=== PATIENT | female | born 1970 | race Caucasian/White ===

== ENCOUNTER 2017-06-29 07:35 | Inpatient (IN) | payer BC ==
[~2017-06-29 07:35] MED LIST: GLYCOPYRROLATE 0.4 MG INJ; LABETALOL HCL 20MG INJ; LIDOCAINE 2% (SDV) 5 ML INJ; NEOSTIGMINE 3 MG/3 ML SYRINGE
[2017-06-29] MEDS: LACTATED RINGER'S 1,000 ML IV* (09:30)
[2017-06-29] MEDS ORDERED: CEFAZOLIN 2 GM/50 ML (PMX) 50 ML IVPB (09:30)
[2017-06-29] MEDS ORDERED: BISACODYL 10 MG SUPP PR (12:00)
[2017-06-29] MEDS ORDERED: ACETAMINOPHEN 325 MG TAB PO (12:00)
[2017-06-29] MEDS ORDERED: NALOXONE (0.4 MG/ML) INJ IV (12:00)
[2017-06-29] MEDS ORDERED: HYDROCODONE/APAP (10/325) TAB PO (12:00)
[2017-06-29] MEDS ORDERED: CA CHLORIDE 10% 10 ML SYRINGE (12:35)
[2017-06-29] MEDS ORDERED: ROCURONIUM 50 MG INJ (12:46)
[2017-06-29] MEDS ORDERED: DEXAMETHASONE 4 MG/ML 1 ML INJ (12:46)
[2017-06-29] MEDS ORDERED: PROPOFOL 20 ML (12:46)
[2017-06-29] MEDS ORDERED: ONDANSETRON 4 MG INJ (12:47)
[2017-06-29] MEDS ORDERED: morphine 10 MG INJ (12:47)
[2017-06-29] MEDS ORDERED: ALBUTEROL 0.083% (NEB) 2.5 MG/3 ML AMP HHN (13:00)
[2017-06-29] MEDS ORDERED: EPHEDrine SULFATE 50 MG/5 ML SYG IV (13:00)
[2017-06-29] MEDS ORDERED: ONDANSETRON 4 MG INJ IV (13:00)
[2017-06-29] MEDS ORDERED: MIDAZOLAM 1 MG/ML 2 ML INJ IV (13:00)
[2017-06-29] MEDS ORDERED: hydrALAzine 20 MG INJ IV (13:00)
[2017-06-29] MEDS ORDERED: DIPHENHYDRAMINE 50 MG INJ IV (13:00)
[2017-06-29] MEDS ORDERED: FENTAnyl 50 MCG/ML VIAL IV ×2 (13:00)
[2017-06-29] MEDS ORDERED: HYDROmorphONE (0.2 MG/ML) 10ML SYG IV ×2 (13:00→17:20)
[2017-06-29] MEDS ORDERED: LABETALOL HCL 20MG INJ IV (13:00)
[2017-06-29] MEDS ORDERED: OXYCODONE/ACETAMINOPHEN (5/325) TAB PO ×2 (13:00)
[2017-06-29] MEDS: CEFAZOLIN 1 GM INJ (14:52)
[2017-06-29] MEDS: SURGIFOAM POWDER 1 GM KIT ×2 (14:54→16:54)
[2017-06-29] MEDS: GELATIN SIZE 100 SPONGE (14:54)
[2017-06-29] MEDS: HEPARIN 1000 UNITS/ML 10 ML INJ ×2 (14:54→14:55)
[2017-06-29] MEDS: LIDOCAINE 1%/EPI 30 ML INJ (14:57)
[2017-06-29] MEDS: THROMBIN 5000 UNIT VIAL (14:57)
[2017-06-29] MEDS ORDERED: CEFAZOLIN 1 GM/50 ML (PMX) 50 ML IVPB (15:00)
[2017-06-29] MEDS: HYDROmorphONE 0.5 MG/0.5 ML SYG IV (17:19)
[2017-06-29] MEDS: HYDROmorphONE 0.2 MG/ML PCA IV (17:24)
[2017-06-29] MEDS: HYDROmorphONE (0.2 MG/ML) 10ML SYG IV ×5 (17:26→17:57)
[2017-06-29] MEDS: FENTAnyl 50 MCG/ML VIAL IV ×2 (17:37→17:57)
[2017-06-29] MEDS: KETOROLAC 30 MG INJ IV (17:39)
[2017-06-29] MEDS: MEPERIDINE 25 MG INJ IV (17:39)
[2017-06-29] MEDS: DIPHENHYDRAMINE 50 MG INJ IV (17:49)
[2017-06-29 18:02] LABS: ADD UMIC YES; UR ASCORBIC ACID NEGATIVE (NEGATIVE); UR BILIRUBIN (Dip) NEGATIVE (NEGATIVE); UR BLOOD (Dip) 1+ mg/dL (NEGATIVE); UR CLARITY CLEAR (CLEAR); UR COLOR YELLOW (YELLOW); UR GLUCOSE (Dip) NEGATIVE (NEGATIVE); UR KETONES (Dip) NEGATIVE (NEGATIVE); UR LEUKOCYTE ESTERASE (Dip) NEGATIVE Leu/ul (NEGATIVE); UR NITRITE (Dip) NEGATIVE (NEGATIVE); UR RBC 13 /HPF (0-5); UR SPECIFIC GRAVITY (Dip) 1.023 (1.003-1.030); UR TOTAL PROTEIN (Dip) 1+ mg/dl (NEGATIVE); UR UROBILINOGEN (Dip) NEGATIVE (NEGATIVE); UR WBC 1 /HPF (0-5)
[2017-06-29] MEDS: BUPROPION (XL) 150 MG TAB PO (21:50)
[2017-06-29] MEDS: DOCUSATE SODIUM 100 MG CAP PO (21:51)
[2017-06-29] MEDS: D5W-0.45 NACL + KCL 20 MEQ 1,000 ML IV (23:13)
[2017-06-29] MEDS: CEFAZOLIN 1 GM/50 ML (PMX) 50 ML IVPB (23:14)
[2017-06-29] MEDS: CEPASTAT LOZENGE MT (23:15)
[2017-06-30] MEDS: D5W-0.45 NACL + KCL 20 MEQ 1,000 ML IV ×3 (01:00→11:33)
[2017-06-30 05:12] LABS: WHITE BLOOD COUNT 10.9 10^3/ul (4.8-10.8)
[2017-06-30 05:12] LABS: ABNORMAL IP MESSAGE 1; ADD MAN DIFF? NO; BASOPHILS % 0.1 % (0.0-2.0); HEMATOCRIT 32.1 % (37.0-47.0); HEMOGLOBIN 10.7 g/dl (12.0-16.0); LYMPHOCYTES # 0.5 10^3/ul (0.8-2.9); LYMPHOCYTES % 4.7 % (15.0-51.0); MEAN CORPUSCULAR HEMOGLOBIN 29.7 pg (29.0-33.0); MEAN CORPUSCULAR HGB CONC 33.3 g/dl (32.0-37.0); MEAN CORPUSCULAR VOLUME 89.2 fl (82.0-101.0); MEAN PLATELET VOLUME 9.3 fl (7.4-10.4); MONOCYTE # 1.3 10^3/ul (0.3-0.9); MONOCYTES % 12.3 % (0.0-11.0); NEUTROPHILS % 82.5 % (39.0-77.0); PLATELET COUNT 227 10^3/UL (140-415); RED CELL DISTRIBUTION WIDTH 12.3 % (11.5-14.5)
[2017-06-30 05:14] LABS: POSITIVE DIFF @See below
[2017-06-30 06:02] LABS: ANION GAP 15 (8-16); BLOOD UREA NITROGEN 13 mg/dl (7-20); CALCIUM 8.7 mg/dl (8.4-10.2); CARBON DIOXIDE 24 mmol/L (21-31); CHLORIDE 105 mmol/L (97-110); CREATININE 0.75 mg/dl (0.44-1.00); GLUCOSE 145 mg/dl (70-220); MAGNESIUM 1.7 mg/dl (1.7-2.5); POTASSIUM 4.4 mmol/L (3.5-5.1); SODIUM 140 mmol/L (135-144)
[2017-06-30] MEDS: CEFAZOLIN 1 GM/50 ML (PMX) 50 ML IVPB ×2 (06:18→15:00)
[2017-06-30] MEDS: DOCUSATE SODIUM 100 MG CAP PO ×2 (08:48→20:17)
[2017-06-30] MEDS: HYDROmorphONE 0.2 MG/ML PCA IV (09:20)
[2017-06-30] MEDS: ONDANSETRON 4 MG INJ IV ×2 (13:32→20:17)
[2017-06-30] MEDS: CARISOPRODOL 350 MG TAB PO (15:00)
[2017-06-30] MEDS: HYDROCODONE/APAP (10/325) TAB PO ×2 (16:04→20:24)
[2017-06-30] MEDS: AL HYDROX/MG HYDROX/SIMETH 30 ML CUP PO (20:16)
[2017-06-30] MEDS: BUPROPION (XL) 150 MG TAB PO (20:17)
[2017-07-01] MEDS: HYDROCODONE/APAP (10/325) TAB PO ×6 (01:13→23:13)
[2017-07-01 05:43] LABS: ADD MAN DIFF? NO
[2017-07-01 05:50] LABS: WHITE BLOOD COUNT 7.2 10^3/ul (4.8-10.8)
[2017-07-01 05:50] LABS: BASOPHILS % 0.3 % (0.0-2.0); EOSINOPHILS # 0.1 10^3/ul (0.0-0.5); HEMATOCRIT 27.2 % (37.0-47.0); HEMOGLOBIN 9.4 g/dl (12.0-16.0); LYMPHOCYTES # 1.3 10^3/ul (0.8-2.9); LYMPHOCYTES % 18.1 % (15.0-51.0); MEAN CORPUSCULAR HEMOGLOBIN 30.2 pg (29.0-33.0); MEAN CORPUSCULAR HGB CONC 34.6 g/dl (32.0-37.0); MEAN CORPUSCULAR VOLUME 87.5 fl (82.0-101.0); MEAN PLATELET VOLUME 9.7 fl (7.4-10.4); MONOCYTE # 0.8 10^3/ul (0.3-0.9); MONOCYTES % 11.5 % (0.0-11.0); NEUTROPHILS % 68.8 % (39.0-77.0); PLATELET COUNT 200 10^3/UL (140-415); RED BLOOD COUNT 3.11 10^6/ul (4.20-5.40); RED CELL DISTRIBUTION WIDTH 12.4 % (11.5-14.5)
[2017-07-01 06:03] LABS: PHOSPHORUS 2.3 mg/dl (2.5-4.9)
[2017-07-01] MEDS: D5W-0.45 NACL + KCL 20 MEQ 1,000 ML IV ×2 (06:06→17:00)
[2017-07-01 06:08] LABS: ANION GAP 12 (8-16); BLOOD UREA NITROGEN 8 mg/dl (7-20); CALCIUM 8.5 mg/dl (8.4-10.2); CARBON DIOXIDE 28 mmol/L (21-31); CHLORIDE 103 mmol/L (97-110); CREATININE 0.72 mg/dl (0.44-1.00); GLUCOSE 102 mg/dl (70-220); MAGNESIUM 1.8 mg/dl (1.7-2.5); POTASSIUM 4.1 mmol/L (3.5-5.1); SODIUM 139 mmol/L (135-144)
[2017-07-01] MEDS: CARISOPRODOL 350 MG TAB PO (09:21)
[2017-07-01] MEDS: DOCUSATE SODIUM 100 MG CAP PO ×2 (09:21→20:31)
[2017-07-01] MEDS: SODIUM PHOSPHATE 30 MMOL in SOD CHLORIDE 0.9% 250 ML IVPB (09:55)
[2017-07-01 13:24] LABS: ADD MAN DIFF? NO
[2017-07-01 13:28] LABS: WHITE BLOOD COUNT 7.8 10^3/ul (4.8-10.8)
[2017-07-01 13:28] LABS: BASOPHILS % 0.4 % (0.0-2.0); EOSINOPHILS # 0.1 10^3/ul (0.0-0.5); EOSINOPHILS % 0.8 % (0.0-7.0); HEMATOCRIT 28.4 % (37.0-47.0); HEMOGLOBIN 9.8 g/dl (12.0-16.0); LYMPHOCYTES # 1.4 10^3/ul (0.8-2.9); LYMPHOCYTES % 17.4 % (15.0-51.0); MEAN CORPUSCULAR HEMOGLOBIN 30.4 pg (29.0-33.0); MEAN CORPUSCULAR HGB CONC 34.5 g/dl (32.0-37.0); MEAN CORPUSCULAR VOLUME 88.2 fl (82.0-101.0); MEAN PLATELET VOLUME 9.3 fl (7.4-10.4); MONOCYTES % 12.5 % (0.0-11.0); NEUTROPHIL # 5.4 10^3/ul (1.6-7.5); NEUTROPHILS % 68.6 % (39.0-77.0); PLATELET COUNT 201 10^3/UL (140-415); RED BLOOD COUNT 3.22 10^6/ul (4.20-5.40); RED CELL DISTRIBUTION WIDTH 12.3 % (11.5-14.5)
[2017-07-01] MEDS: HYDROmorphONE 0.5 MG/0.5 ML SYG IV ×2 (13:51→15:50)
[2017-07-01] MEDS: ONDANSETRON 4 MG INJ IV (15:50)
[2017-07-01] MEDS: BUPROPION (XL) 150 MG TAB PO (20:31)
[2017-07-02] MEDS: D5W-0.45 NACL + KCL 20 MEQ 1,000 ML IV ×2 (03:00→11:01)
[2017-07-02] MEDS: HYDROCODONE/APAP (10/325) TAB PO ×3 (03:26→12:22)
[2017-07-02 05:08] LABS: ADD MAN DIFF? NO
[2017-07-02 05:10] LABS: WHITE BLOOD COUNT 6.3 10^3/ul (4.8-10.8)
[2017-07-02 05:10] LABS: BASOPHILS % 0.5 % (0.0-2.0); EOSINOPHILS # 0.2 10^3/ul (0.0-0.5); EOSINOPHILS % 2.5 % (0.0-7.0); HEMATOCRIT 28.8 % (37.0-47.0); HEMOGLOBIN 9.6 g/dl (12.0-16.0); LYMPHOCYTES # 1.4 10^3/ul (0.8-2.9); LYMPHOCYTES % 22.2 % (15.0-51.0); MEAN CORPUSCULAR HEMOGLOBIN 29.7 pg (29.0-33.0); MEAN CORPUSCULAR HGB CONC 33.3 g/dl (32.0-37.0); MEAN CORPUSCULAR VOLUME 89.2 fl (82.0-101.0); MEAN PLATELET VOLUME 9.5 fl (7.4-10.4); MONOCYTE # 0.7 10^3/ul (0.3-0.9); MONOCYTES % 11.6 % (0.0-11.0); NEUTROPHILS % 62.9 % (39.0-77.0); PLATELET COUNT 215 10^3/UL (140-415); RED BLOOD COUNT 3.23 10^6/ul (4.20-5.40); RED CELL DISTRIBUTION WIDTH 12.6 % (11.5-14.5)
[2017-07-02 05:25] LABS: IRON 20 ug/dl (35-150)
[2017-07-02 05:30] LABS: ANION GAP 12 (8-16); BLOOD UREA NITROGEN 7 mg/dl (7-20); CALCIUM 8.8 mg/dl (8.4-10.2); CARBON DIOXIDE 32 mmol/L (21-31); CHLORIDE 103 mmol/L (97-110); GLUCOSE 95 mg/dl (70-220); MAGNESIUM 1.8 mg/dl (1.7-2.5); POTASSIUM 4.5 mmol/L (3.5-5.1); SODIUM 142 mmol/L (135-144)
[2017-07-02 05:35] LABS: PHOSPHORUS 3.7 mg/dl (2.5-4.9)
[2017-07-02 05:35] LABS: % IRON SATURATION 10 % SAT (22-52); TOTAL IRON BINDING CAPACITY 201 ug/dl (241-421)
[2017-07-02] MEDS: DOCUSATE SODIUM 100 MG CAP PO (08:35)
== END 2017-07-02 13:32 | disposition home or self-care (01) | DRG 455 ==
LOC: REC 07:35 → MS1 19:45
PROC: 0SG00A0 Fusion of Lumbar Vertebral Joint with Interbody Fusion Device, Anterior Approach, Anterior Column, Open Approach (ICD-10-PCS; principal; 2017-06-29 10:00)
PROC: 0SG00K1 Fusion of Lumbar Vertebral Joint with Nonautologous Tissue Substitute, Posterior Approach, Posterior Column, Open Approach (ICD-10-PCS; 2017-06-29 10:00)
PROC: 0SG30A0 Fusion of Lumbosacral Joint with Interbody Fusion Device, Anterior Approach, Anterior Column, Open Approach (ICD-10-PCS; 2017-06-29 10:00)
PROC: 0SG30K1 Fusion of Lumbosacral Joint with Nonautologous Tissue Substitute, Posterior Approach, Posterior Column, Open Approach (ICD-10-PCS; 2017-06-29 10:00)
PROC: 0ST40ZZ Resection of Lumbosacral Disc, Open Approach (ICD-10-PCS; 2017-06-29 10:00)
PROC: 0ST20ZZ Resection of Lumbar Vertebral Disc, Open Approach (ICD-10-PCS; 2017-06-29 10:00)
PROC: 07DR3ZZ Extraction of Iliac Bone Marrow, Percutaneous Approach (ICD-10-PCS; 2017-06-29 10:00)
DX: M51.16 Intervertebral disc disorders with radiculopathy, lumbar region (principal); M51.17 Intervertebral disc disorders with radiculopathy, lumbosacral region; D50.9 Iron deficiency anemia, unspecified; M48.061 Spinal stenosis, lumbar region without neurogenic claudication; Z85.3 Personal history of malignant neoplasm of breast
CPT/HCPCS: 72114; 80048; 81001; 82728; 83540; 83735; 84100; 84703; 85025; 86850; 86900; 86901; 86920; 86999; 87086; 97116; 97162; 97530